=== PATIENT | female | born 1995 | race Caucasian/White ===

== ENCOUNTER 2020-08-26 04:32 | Emergency (ER) | payer OTHER ==
[2020-08-26] MEDS ORDERED: LIDOCAINE HCL-MPF 1% 2ML VIAL ONE (04:45)
[2020-08-26] MEDS ORDERED: CEFTRIAXONE SODIUM 1 GM ONE (04:46)
[2020-08-26] MEDS ORDERED: KETOROLAC TROMETHAMINE 60 MG/2 ML VIAL ONE (04:46)
[2020-08-26] MEDS ORDERED: PHENAZOPYRIDINE HCL 200 MG TABLET ONE (04:47)
[2020-08-26 05:06] LABS: APPEARANCE,URINE Cloudy (CLEAR); BILIRUBIN,URINE Small (NEGATIVE); COLOR,URINE Dark Yellow (YELLOW); GLUCOSE, URINE (UA) Negative (NEGATIVE); KETONES,URINE Negative (NEGATIVE); LEUKOCYTE ESTERASE ,URINE Small (NEGATIVE); NITRATE,URINE Negative (NEGATIVE); OCCULT BLOOD,URINE Large (NEGATIVE); PROTEIN,URINE 300 mg/dL (NEGATIVE)
[2020-08-26 05:13] LABS: BACTERIA,URINE Rare /HPF (None Seen); RBC,URINE 51-100 /HPF (0-1); SQUAMOUS EPITHELIAL CELL,UR Moderate /HPF (0-2); WBC,URINE 0-1 /HPF (0-1)
== END 2020-08-26 06:13 | disposition home or self-care (01) ==
LOC: EDH 04:32
DX: N30.90 Cystitis, unspecified without hematuria (principal); J45.909 Unspecified asthma, uncomplicated
CPT/HCPCS: 81001; 81025; 87088; 96372 ×2; 99284; J0696; J1885; J3490